=== PATIENT | female | born 1985 | race Caucasian/White ===

== ENCOUNTER 2017-06-03 09:29 | Emergency (ER) | payer SELFPAY ==
[~2017-06-03] VITALS: Ht 172.7 cm; Wt 63.5 kg
[~2017-06-03 09:29] MED LIST: AMPH15TA3 PO; CEPH500T7 PO; FLU60SYR30 IM ONLY; LAMO200T46 PO; LOR5/325 PO; MULT1TAB64 PO; NITR-105 PO; NITR50CA35 PO
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
[2017-06-03 10:48] LABS: PLATELET COUNT, AUTOMATED 220 K/uL (150-450)
[2017-06-03] MEDS ORDERED: NITR-105 (10:57)
[2017-06-03 13:45] VITALS: BP 105/65
== END 2017-06-03 14:02 ==
LOC: ER 09:30 → EDBEDREQSVC 11:59 → ER 14:02
DX: F33.2 Major depressive disorder, recurrent severe without psychotic features (principal)
CPT/HCPCS: 36415; 80305; 80320; 80329; 81001; 81025; 82040; 82247; 82310; 82374; 82435; 82565; 82947; 83735; 84075; 84132; 84155; 84295; 84443; 84450; 84460; 84520; 85025; 99284

== ENCOUNTER 2017-06-03 12:03 | Inpatient (IN) | payer SELFPAY ==
[~2017-06-03] VITALS: Ht 172.7 cm; Wt 61.2 kg
[~2017-06-03 12:03] MED LIST changes: +NITR-105
[2017-06-03 14:05] VITALS: BP 109/60
[2017-06-03] MEDS ORDERED: MAG HYD/AL HYD/SIMETH 30ML UDC PO PRN (16:15)
[2017-06-03] MEDS: MELATONIN 3 MG TAB PO SCH (21:00)
[2017-06-03] MEDS ORDERED: PATIENT'S OWN MED PO SCH (21:00)
[2017-06-03] MEDS: NITROFURANTOIN MONO 100 MG PO SCH (21:00)
[2017-06-03] MEDS: OXYMETAZOLINE SPRAY 15 ML BTL ENA SCH (21:01)
[2017-06-04 06:27] VITALS: BP 100/68
[2017-06-04] MEDS ORDERED: NITROFURANTOIN MONO 100 MG PO SCH (08:00)
[2017-06-04 08:05] VITALS: BP 98/62
[2017-06-04] MEDS: MULTIVITAMINS PO SCH (08:23)
[2017-06-04] MEDS: NITROFURANTOIN MONO 100 MG PO SCH ×2 (08:23→21:00)
[2017-06-04] MEDS: OXYMETAZOLINE SPRAY 15 ML BTL ENA SCH ×2 (08:23→21:00)
[2017-06-04] MEDS ORDERED: AMPHETAMINE PO SCH (09:00)
[2017-06-04] MEDS ORDERED: DEXTROAMPHETAMINE PO SCH (09:00)
[2017-06-04] MEDS: ESCITALOPRAM OXALATE 10 MG TAB PO SCH (11:28)
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
[2017-06-04 18:00] VITALS: BP 112/56
[2017-06-04] MEDS: MELATONIN 3 MG TAB PO SCH (21:00)
[2017-06-05 01:44] VITALS: BP 94/60
[2017-06-05] MEDS: ESCITALOPRAM OXALATE 10 MG TAB PO SCH (07:58)
[2017-06-05] MEDS: MULTIVITAMINS PO SCH (07:58)
[2017-06-05] MEDS: NITROFURANTOIN MONO 100 MG PO SCH ×2 (07:58→20:45)
[2017-06-05] MEDS: OXYMETAZOLINE SPRAY 15 ML BTL ENA SCH ×2 (07:59→20:45)
[2017-06-05 09:25] VITALS: BP 98/58
--- NOTE | 2017-06-05 11:50 | BHS Progress Note ---
BHS - Subjective Progress Notes Subjective "I feel quite a bit better. " Reports slept well other than waking up feeling cold, but able to fall back to sleep. Denies SI. Rates depression level a 4 or 5. Anxious thinking about all she has to do when gets home. Suicidal Ideation: Resolving Homicidal Ideation: None BHS - Objective Physical Exam Vital Signs Vital Signs 06/05/17 06/05/17 01:44 09:25 Temp 100.4 Pulse 66 Resp 16 B/P (MAP) 98/58 (71) Pulse Ox 96 O2 Delivery Room Air Muscle Strength and Tone: WNL Gait and Station: Steady BHS Medications Reviewed: Side Effects, Benefits of Medication, Risks Allergies Reviewed: Yes Mental Status Exam General Appearance: Casual, Well Groomed, Good Eye Contact, Cooperative, Polite , Good Interaction, Tearful Speech: Clear, Spontaneous, Normal Rate, Normal Rhythm, Normal Volume, Normal Tone Mood: Dysthmic/Depressed Affect: Calm, Sad, Anxious Thought Process: Organized, Logical, Goal Directed, No Loose Associations, No Flight of Ideas Thought Content: Suicidal Ideation (denies), No Homicidal Ideation, No Delusions, No Auditory Halllucinations, No Visual Hallucinations Sensorium: Clear Cognition: Alert & Oriented-Person, Alert & Oriented-Place, Alert & Oriented- Time, [id number] Memory: Immediate, Recent, Remote Intelligence: Above Average Insight Judgment: Appropriate [facility] Assessment and Plan [id number] Encounter Date: Jun 05, 2017 [id number] Encounter Time: 11:30 Tobacco Medications: Not Appropriate Condition Problems: CLIFFORD MCKEON NP Jun 05, 2017 11:50
[2017-06-05 14:40] VITALS: BP 105/62
[2017-06-05] MEDS: MELATONIN 3 MG TAB PO SCH (20:44)
[2017-06-06 04:55] VITALS: BP 113/74
[2017-06-06] MEDS: NITROFURANTOIN MONO 100 MG PO SCH (08:28)
[2017-06-06] MEDS: ESCITALOPRAM OXALATE 10 MG TAB PO SCH (08:28)
[2017-06-06] MEDS: OXYMETAZOLINE SPRAY 15 ML BTL ENA SCH (08:28)
[2017-06-06] MEDS: MULTIVITAMINS PO SCH (08:28)
[2017-06-06] MEDS ORDERED: ESCI20TA38 PO (10:59)
[2017-06-06] MEDS ORDERED: MELA3TAB31 PO (11:01)
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
== END 2017-06-06 15:55 | disposition home or self-care (01) | DRG 882 ==
LOC: BHS 12:03
PROVIDERS: ADMIT Psychiatry & Neurology Psychiatry; ATTEND Psychiatry & Neurology Psychiatry
DX: F43.23 Adjustment disorder with mixed anxiety and depressed mood (principal); F98.8 Other specified behavioral and emotional disorders with onset usually occurring in childhood and adolescence; F43.10 Post-traumatic stress disorder, unspecified; F10.129 Alcohol abuse with intoxication, unspecified; F12.90 Cannabis use, unspecified, uncomplicated; Y90.6 Blood alcohol level of 120-199 mg/100 ml; Z91.5 Personal history of self-harm; Z87.440 Personal history of urinary (tract) infections; Z88.2 Allergy status to sulfonamides; Z63.5 Disruption of family by separation and divorce; Z79.899 Other long term (current) drug therapy